=== PATIENT | male | born 1980 | race Caucasian/White ===

== ENCOUNTER → 2020-07-15 | Outpatient (CLI) | payer MEDICARE, MEDICAID | LOC: RAD 07:40 | DX: S93.492A Sprain of other ligament of left ankle, initial encounter (principal) ==

== ENCOUNTER → 2021-07-02 | Outpatient (CLI) | payer MEDICARE, MEDICAID ==
[2021-07-02 10:24] LABS: BASO # 0.02 K/mm3 (0.02-0.10); EOS # 0.12 K/mm3 (0.04-0.40); EOS % 1.9 % (0.0-4.0); HEMATOCRIT 44.1 % (42.0-52.0); HEMOGLOBIN 14.2 g/dL (13.5-18.0); LYMPH# 1.41 K/mm3 (1.50-4.00); MEAN CELL VOLUME 78 fl (78-100); MEAN CORPUSCULAR HEMOGLOBIN 25 pg (27-31); MEAN CORPUSCULAR HGB CONC 32 g/dL (33-37); MEAN PLATELET VOLUME 12.3 fl (7.4-10.4); MONO # 0.44 K/mm3 (0.20-0.80); NEU # 4.39 K/mm3 (1.40-6.50); PLATELET COUNT 292 K/mm3 (130-400); RED BLOOD COUNT 5.69 M/mm3 (4.20-5.60); RED CELL DISTRIBUTION WIDTH 14.3 % (11.5-14.5); WHITE BLOOD COUNT 6.5 K/mm3 (4.8-10.8)
[2021-07-02 10:31] LABS: ALBUMIN 4.6 g/dL (3.5-5.0); POTASSIUM 4.1 mmol/L (3.5-5.1)
[2021-07-02 10:32] LABS: CALCIUM 9.9 mg/dL (8.3-10.5)
[2021-07-02 10:34] LABS: TOTAL PROTEIN 7.8 g/dL (6.4-8.3)
[2021-07-02 10:35] LABS: TOTAL BILIRUBIN 0.4 mg/dL (0.2-1.2)
[2021-07-02 10:41] LABS: MAGNESIUM 2.04 mg/dL (1.60-2.60)
== END ==
LOC: LAB 10:03
PROVIDERS: Internal Medicine
DX: Z00.00 Encounter for general adult medical examination without abnormal findings (principal); E78.5 Hyperlipidemia, unspecified; K90.9 Intestinal malabsorption, unspecified; F90.9 Attention-deficit hyperactivity disorder, unspecified type; Q99.2 Fragile X chromosome; S93.492A Sprain of other ligament of left ankle, initial encounter; T14.8XXA Other injury of unspecified body region, initial encounter; R71.8 Other abnormality of red blood cells; R32 Unspecified urinary incontinence; X58.XXXA Exposure to other specified factors, initial encounter